=== PATIENT | male | born 1980 | race Caucasian/White ===

== ENCOUNTER 2018-02-08 06:31 | Emergency (ER) | payer SELFPAY ==
[~2018-02-08] VITALS: Ht 167.6 cm; Wt 91.1 kg
[2018-02-08 06:34] VITALS: BP 130/80; PULSE 64; RESP 20; Ht 167.6 cm; Wt 91.1 kg
[2018-02-08] MEDS ORDERED: IBUPROFEN 600 MG TAB PO ONE (07:00)
[2018-02-08] MEDS ORDERED: IBUP-1542 PO (08:01)
--- NOTE | 2018-02-08 08:09 | ERD ---
ER Documentation Chief Complaint Chief Complaint Complains of left hand pain after a game x 3 days ago HPI Patient is a 37-year-old male presents ER for concerns of left wrist and forearm pain times 3 days. Patient states he was playing rugby when he fell on his flexed hand. Patient states he has been taking ibuprofen and ice with minimal alleviation of pain. Patient is right-hand dominant. Patient denies any previous fractures or dislocations. Patient denies fevers or chills. ROS All systems reviewed and are negative except as per history of present illness. Medications Home Meds Active Scripts Ibuprofen* (Motrin*) 600 Mg Tab, 600 MG PO Q6, #30 TAB Prov:GIA NEVILLE PA-C 02/08/18 Allergies Allergies: Coded Allergies: No Known Allergy (Unverified , 02/08/18) PMhx/Soc Medical and Surgical Hx: pt denies Medical Hx History of Surgery: Yes (APPENDECTOMY) Anesthesia Reaction: No Hx Respiratory Disorders: No Hx Cardiac Disorders: No Hx Psychiatric Problems: No Hx Miscellaneous Medical Probl: No Hx Substance Use: Yes (MARIJUANA) Hx Tobacco Use: No Smoking Status: Never smoker FmHx Family History: No diabetes Physical Exam Vitals Vital Signs Date Temp Pulse Resp B/P (MAP) Pulse Ox O2 O2 Flow FiO2 Time Delivery Rate 02/08/18 98.0 64 20 130/80 98 06:34 (97) Physical Exam GENERAL: Well-developed, well-nourished male. Appears in no acute distress. HEAD: Normocephalic, atraumatic. EYES: Pupils are equally reactive bilaterally. EOMs grossly intact. No conjunctival erythema. EXTREMITIES: Equal pulses bilaterally. No peripheral clubbing, cyanosis or edema. No unilateral leg swelling. NEUROLOGIC: Alert and oriented. Moving all four extremities without any difficulty. Normal speech. Steady gait. SKIN: Normal color. Warm and dry. No rashes or lesions. LUE: No deformity, erythema, ecchymosis. Minimal swelling throughout the wrist and hand. Normal range of motion of the wrist and all digits. Normal range of motion of the elbow. Nontender to palpation over the metacarpals. Tender to palpation over the distal wrist. Sensation intact to light touch. Neurovascularly intact. (Able to give thumbs up, make an ok sign, cross digits 2 and 3, thumb to pinky opposition. 2+ RP.) No snuffbox tenderness. Results 24 hrs Current Medications Medications Dose Sig/Mari Start Time Status Last (Trade) Ordered Route PRN Stop Time Admin Dose Reason Admin Ibuprofen 600 mg ONCE ONCE 02/08/18 DC 02/08/18 (Motrin) PO 07:00 06:53 02/08/18 07:01 Procedures/MDM ED COURSE: The patient was stable throughout ED course. I kept the patient and/or family informed of laboratory and diagnostic imaging results throughout the ED course. DIAGNOSTIC IMAGING: Read by radiologist. Patient: RD DUQUE : 1980 Age: 37 Sex: M MR #: [id number] DOS: 02/08/18 0649 Ordering MD: GIA NEVILLE PA-C Location: [facility] Room/Bed: PROCEDURE: XR left Forearm. CLINICAL INDICATION: Pain status post injury TECHNIQUE: AP and lateral views of the left forearm were obtained portably. COMPARISON: Current left wrist series, dictated separately FINDINGS: No fracture or dislocation is seen. No definite lytic or blastic bony lesion. Mild generalized distal forearm and wrist soft tissue swelling. No radiopaque foreign body. IMPRESSION: No definite acute osseous abnormality is seen. RPTAT: HSAF Physician Hoda Date Time Electronically viewed and signed by Physician Hoda on 02/08/2018 07:34 RF/ CC: GIA NEVILLE PA-C [id number] PROCEDURES: SPLINT APPLICATION: The patient was verbally consented at bedside prior to splint application. Patient was explained the risks, benefits and alternatives to this procedure. The patient was neurovascularly intact prior to and status post application of the splint. The patient tolerated the procedure well with no complications. Splint type: velcro wrist splint Extremity: Right wrist Indication: Unable to rule any ligament or tendon injuries, occult fractures MEDICATIONS GIVEN: Ibuprofen Patient tolerated medication well with no adverse reactions. Patient reported improvement in pain. MEDICAL DECISION MAKING: This is a 37-year-old male presents ER for concerns of left wrist and forearm pain times 3 days. Vital signs were reviewed. Patient was afebrile. X-ray imaging was unremarkable. See formal report above. Patient was given a Velcro splint for comfort measures. Patient did report improvement after using splint. Patient was advised on R ICE therapy. Patient advised to follow-up with an fulfillment specialist. Repeat x-rays were advised in 1 week. Low suspicion for dislocation, radius fracture, ulna fracture, metacarpal fracture, scaphoid fracture, carpal bone fracture, septic joint, or compartment syndrome. PRESCRIPTIONS: Ibuprofen DISCHARGE: At this time, patient is stable for discharge and outpatient management. RICE therapy and ROM exercises were advised to avoid stiffness. I have instructed the patient to follow-up with his/her primary care physician in 1-2 days. I have discussed with the patient the possibility of needing to see an fulfillment specialist for further workup and imaging if the pain persists. I have instructed the patient to promptly return to the ER for any new or worsening symptoms including increased pain, swelling, redness, warmth or fever. The patient and/or family expressed understanding of and agreement with this plan. All questions were answered. Home care instructions were provided. Disclaimer: Inadvertent spelling and grammatical errors are likely due to EHR/dictation software use and do not reflect on the overall quality of patient care. Also, please note that the electronic time recorded on this note does not necessarily reflect the actual time of the patient encounter. Departure Diagnosis: Primary Impression: Left wrist pain Condition: Stable Patient Instructions: Wrist Sprain Referrals: [facility] YOU HAVE RECEIVED A MEDICAL SCREENING EXAM AND THE RESULTS INDICATE THAT YOU DO NOT HAVE A CONDITION THAT REQUIRES URGENT TREATMENT IN THE EMERGENCY DEPARTMENT. FURTHER EVALUATION AND TREATMENT OF YOUR CONDITION CAN WAIT UNTIL YOU ARE SEEN IN YOUR DOCTORS OFFICE WITHIN THE NEXT 1-2 DAYS. IT IS YOUR RESPONSIBILITY TO MAKE AN APPOINTMENT FOR FOLOW-UP CARE. IF YOU HAVE A PRIMARY DOCTOR --you should call your primary doctor and schedule an appointment IF YOU DO NOT HAVE A PRIMARY DOCTOR YOU CAN CALL OUR PHYSICIAN REFERRAL HOTLINE AT IF YOU CAN NOT AFFORD TO SEE A PHYSICIAN YOU CAN CHOSE FROM THE FOLLOWING [facility] [address] [facility]. [facility] [address] [facility] [facility] [address] [facility] [address] [facility] [address] [facility]. [facility]. [address] [facility]. [facility] YOU HAVE RECEIVED A MEDICAL SCREENING EXAM AND THE RESULTS INDICATE THAT YOU DO NOT HAVE A CONDITION THAT REQUIRES URGENT TREATMENT IN THE EMERGENCY DEPARTMENT. FURTHER EVALUATION AND TREATMENT OF YOUR CONDITION CAN WAIT UNTIL YOU ARE SEEN IN YOUR DOCTORS OFFICE WITHIN THE NEXT 1-2 DAYS. IT IS YOUR RESPONSIBILITY TO MAKE AN APPOINTMENT FOR FOLOW-UP CARE. IF YOU HAVE A PRIMARY DOCTOR --you should call your primary doctor and schedule and appointment IF YOU DO NOT HAVE A PRIMARY DOCTOR YOU CAN CALL OUR PHYSICIAN REFERRAL HOTLINE AT . IF YOU CAN NOT AFFORD TO SEE A PHYSICIAN YOU CAN CHOSE FROM THE FOLLOWING [facility] INSTITUTIONS: [facility] [id number] [place] [address] [facility] [address] [place] [address] [facility] [address] [place] [address] [facility] Hours: Mon-Fri 9:00 AM - 5:00 PM Additional Instructions: Unable to rule any ligament or tendon injuries at this time. Repeat x-ray imaging advised in 1 week with fulfillment specialist. Follow-up with an orth opedic specialist on outpatient basis. GIA NEVILLE PA-C Feb 08, 2018 08:09
== END 2018-02-08 08:09 | disposition home or self-care (01) ==
LOC: FTE 06:31
DX: M25.532 Pain in left wrist (principal)
CPT/HCPCS: 73090